=== PATIENT | female | born 1960 | race Caucasian/White ===

== ENCOUNTER 2019-05-10 09:17 | Day surgery (SDC) | payer OTHER ==
[~2019-05-10] VITALS: Ht 154.9 cm; Wt 93.3 kg
[~2019-05-10 09:17] MED LIST: IBUPROFEN PO; OMEPRAZOLE
[2019-05-10 10:25] VITALS: Ht 154.9 cm; Wt 93.3 kg
[2019-05-10 10:46] VITALS: BP 124/69; PULSE 57; RESP 18
[2019-05-10] MEDS ORDERED: LIDOCAINE 4% SOLUTION 50 ML BTL ONE (11:13)
[2019-05-10] MEDS ORDERED: FENTAnyl 50 MCG/ML VIAL ONE (11:52)
[2019-05-10] MEDS ORDERED: MIDAZOLAM 1 MG/ML 2 ML INJ ONE (11:53)
[2019-05-10 12:23] VITALS: BP 109/59; RESP 20
== END 2019-05-10 13:42 | disposition home or self-care (01) ==
LOC: GIL 09:17
PROVIDERS: ATTEND Internal Medicine Gastroenterology
DX: K31.9 Disease of stomach and duodenum, unspecified (principal)
CPT/HCPCS: 43239; 88305; 88312; J2250; J3010; Z7610